=== PATIENT | male | born 1990 | race Caucasian/White ===

== ENCOUNTER 2017-09-25 19:18 | Emergency (ER) | payer OTHER ==
[~2017-09-25] VITALS: Ht 180.3 cm; Wt 104.3 kg
[~2017-09-25 19:18] MED LIST: LORTABELXR PO; NORCO 5-325 TA1 EACH PO; ZPAK PO
[2017-09-25 19:40] LABS: URINE BILIRUBIN NEGATIVE (Negative); URINE BLOOD NEGATIVE (Negative); URINE CLARITY CLEAR; URINE COLOR YELLOW; URINE GLUCOSE-RANDOM NEGATIVE (Negative); URINE KETONES NEGATIVE (Negative); URINE LEUKOCYTES-REFLEX NEGATIVE (Negative); URINE NITRITE-REFLEX NEGATIVE (Negative); URINE PROTEIN NEGATIVE (Negative)
[2017-09-25 19:49] LABS: ABSOLUTE BASOPHILS 0.1 thou/uL (0.0-0.2); ABSOLUTE EOSINOPHILS 0.2 thou/uL (0.0-0.7); ABSOLUTE LYMPHOCYTES 2.6 thou/uL (0.8-5.3); ABSOLUTE MONOCYTES 0.7 thou/uL (0.0-1.2); ABSOLUTE NEUTROPHILS 4.8 thou/uL (1.6-8.1); BASOPHILS 1.1 %; EOSINOPHILS 1.9 %; HEMOGLOBIN 15.4 gm/dL (14.0-18.0); MCH 29.7 pg (26.0-34.0); MCHC 33.6 g/dL (28.0-37.0); MCV 88.4 fL (80.0-100.0); MONOCYTES 8.2 %; MPV 7.9 fl. (7.2-11.1); NUCLEATED RBCS 0 /100WBC; PLATELET COUNT* 307 thou/uL (150-400); POLYS 57.8 %; RDW-CV 13.2 % (10.5-14.5); WBC 8.3 thou/uL (4.0-11.0)
[2017-09-25 19:56] LABS: CALCIUM 8.8 mg/dL (8.5-10.1); CREATININE 1.4 mg/dL (0.6-1.3); POTASSIUM 3.7 mmol/L (3.5-5.1)
[2017-09-25 20:03] LABS: TOTAL BILIRUBIN 0.4 mg/dL (<0.1-1.0)
[2017-09-25] MEDS ORDERED: NAPROSYN500 MG PO (21:16)
[2017-09-25 21:30] VITALS: BP 137/81
== END 2017-09-25 21:32 | disposition home or self-care (01) ==
LOC: M.ERS 19:18
PROVIDERS: Physician Assistant
DX: R10.9 Unspecified abdominal pain (principal)